=== PATIENT | female | born 2000 | race Caucasian/White ===

== ENCOUNTER 2023-02-15 11:54 | Emergency (ER) | payer MEDICAID ==
[2023-02-15] MEDS ORDERED: Ibuprofen 200 MG TAB ONE (13:54)
== END 2023-02-15 14:04 | disposition home or self-care (01) ==
LOC: CSHERS 11:54
DX: S83.91XA Sprain of unspecified site of right knee, initial encounter (principal); X50.1XXA Overexertion from prolonged static or awkward postures, initial encounter